=== PATIENT | female | born 1980 ===

== ENCOUNTER 2025-01-30 10:45 | Inpatient (IN) | payer OTHER ==
[~2025-01-30] VITALS: Ht 157.5 cm; Wt 68.9 kg
[2025-01-30 13:04] VITALS: BP 114/72
[2025-01-30] MEDS ORDERED: SYNTHROID100 MCG (13:04)
[2025-02-06] MEDS ORDERED: CEFTRIAXONE SODIUM 1,000 MG VIAL ONE (10:39)
[2025-02-06] MEDS ORDERED: METRONIDAZOLE/SODIUM CHLORIDE 500 MG/100 ML PIGGYBACK IV ONE (10:39)
[2025-02-06] MEDS ORDERED: LIDOCAINE HCL 1% 20 ML VIAL IJ ONE (12:15)
[2025-02-06] MEDS ORDERED: BUPIVACAINE HCL 30 ML VIAL IV ONE (12:15)
[2025-02-06] MEDS ORDERED: RINGERS SOLUTION,LACTATED 1,000 ML IV SCH (13:15)
[2025-02-06] MEDS ORDERED: MORPHINE SULFATE 4 MG/ML VIAL IV PRN (13:15)
[2025-02-06] MEDS ORDERED: ONDANSETRON HCL 2 MG/ML VIAL IV PRN (13:15)
[2025-02-06] MEDS ORDERED: OxyCODONE HCL 5 MG TABLET (ROXICODONE) PO PRN (13:15)
[2025-02-06] MEDS ORDERED: ACETAMINOPHEN 500 MG GEL..CAP PO SCH (14:00)
[2025-02-06 14:54] LABS: BASO % 0.4 % (0.1-1.2); EOS # 0.08 (0.04-0.54); EOS % 0.6 % (0.7-7.0); LYMPH # 2.50 (1.18-3.74); LYMPH % 18.5 % (19.3-53.1); MEAN PLATELET VOLUME 9.90 fl (9.4-12.4); MONO # 0.51 (0.24-0.82); MONO % 3.8 % (4.7-12.5); NEUT # 10.30 (1.56-6.13); NEUT % 76.4 % (34.0-71.1); RED CELL DISTRIBUTION WIDTH 12.9 % (11.6-14.4)
[2025-02-06] MEDS ORDERED: SIMETHICONE 125 MG CAPSULE PO ONE (15:50)
[2025-02-06] MEDS ORDERED: METOCLOPRAMIDE HCL 5 MG/ML VIAL ONE (15:50)
[2025-02-06] MEDS ORDERED: GABAPENTIN 300 MG CAPSULE PO ONE (15:51)
[2025-02-06] MEDS ORDERED: HYOSCYAMINE SULFATE 0.125 MG TAB.SUBL ONE (15:51)
[2025-02-06] MEDS ORDERED: CELECOXIB 200 MG CAPSULE PO ONE (15:51)
[2025-02-06] MEDS ORDERED: HYOSCYAMINE SULFATE 0.125 MG TAB.SUBL SL SCH (17:00)
[2025-02-06] MEDS ORDERED: SIMETHICONE 125 MG CAPSULE PO SCH (17:00)
[2025-02-06] MEDS ORDERED: GABAPENTIN 300 MG CAPSULE PO SCH (17:00)
[2025-02-06] MEDS ORDERED: METOCLOPRAMIDE HCL 5 MG/ML VIAL IV SCH (17:00)
[2025-02-06] MEDS ORDERED: CELECOXIB 200 MG CAPSULE PO SCH (17:00)
[2025-02-06 17:11] VITALS: BP 114/72; O2SAT 94
[2025-02-06] MEDS ORDERED: FAMOTIDINE/PF 20 MG/2 ML VIAL IV PUSH SCH (21:00)
[2025-02-07 00:45] VITALS: BP 98/60; O2SAT 97
[2025-02-07] MEDS ORDERED: LEVOTHYROXINE SODIUM 100 MCG TABLET PO SCH (06:00)
[2025-02-07 06:59] LABS: BASO % 0.5 % (0.1-1.2); EOS # 0.09 (0.04-0.54); EOS % 1.1 % (0.7-7.0); LYMPH # 2.46 (1.18-3.74); LYMPH % 30.2 % (19.3-53.1); MEAN PLATELET VOLUME 10.00 fl (9.4-12.4); MONO # 0.57 (0.24-0.82); MONO % 7.0 % (4.7-12.5); NEUT # 4.95 (1.56-6.13); NEUT % 60.8 % (34.0-71.1); RED CELL DISTRIBUTION WIDTH 13.0 % (11.6-14.4)
[2025-02-07 07:41] LABS: BUN CREA RATIO 4.0 (7.0-25.0); CREATININE SERUM 0.68 mg/dL (0.55-1.02); GFR 93.57; GLUCOSE FASTING 102.0 mg/dL (65-100); OSMOLALITY SERUM 282.0 MOSM/KG (275-295)
[2025-02-07] MEDS ORDERED: LACTULOSE 20 G/30 ML BLIST.PACK PO SCH (09:00)
[2025-02-07] MEDS ORDERED: LACTOBACILLUS ACIDOPHILUS 1 CAP CAP PO SCH (09:00)
[2025-02-07 09:18] VITALS: BP 119/81; O2SAT 100
[2025-02-07 16:05] VITALS: BP 100/66; O2SAT 97
[2025-02-07] MEDS ORDERED: ENOXAPARIN SODIUM 40 MG/0.4 ML SYRINGE SUBCUTANEO SCH (17:00)
[2025-02-08 00:36] VITALS: BP 102/67; O2SAT 95
[2025-02-08 06:33] LABS: BASO % 0.6 % (0.1-1.2); EOS # 0.11 (0.04-0.54); EOS % 1.7 % (0.7-7.0); LYMPH # 2.60 (1.18-3.74); LYMPH % 40.6 % (19.3-53.1); MEAN PLATELET VOLUME 10.30 fl (9.4-12.4); MONO # 0.40 (0.24-0.82); MONO % 6.2 % (4.7-12.5); NEUT # 3.24 (1.56-6.13); NEUT % 50.6 % (34.0-71.1); RED CELL DISTRIBUTION WIDTH 13.0 % (11.6-14.4)
[2025-02-08 07:26] LABS: BUN CREA RATIO 7.0 (7.0-25.0); CREATININE SERUM 0.71 mg/dL (0.55-1.02); GFR 89.02; GLUCOSE FASTING 92.0 mg/dL (65-100); OSMOLALITY SERUM 284.0 MOSM/KG (275-295)
[2025-02-08 08:00] VITALS: BP 128/86; O2SAT 95
[2025-02-08] MEDS ORDERED: ENOXAPARIN SODIUM 40 MG/0.4 ML SYRINGE SUBCUTANEO SCH (09:00)
[2025-02-08 16:14] VITALS: BP 119/79; O2SAT 97
== END 2025-02-08 20:45 | disposition home or self-care (01) | DRG 331 ==
LOC: SURH 02-06 07:00 → O/R 02-06 09:54 → SURH 02-06 09:54
PROVIDERS: Internal Medicine Geriatric Medicine; ADMIT Colon & Rectal Surgery; ATTEND Colon & Rectal Surgery
PROC: 07BB4ZZ Excision of Mesenteric Lymphatic, Percutaneous Endoscopic Approach (ICD-10-PCS; 2025-02-06)
PROC: 0DTH4ZZ Resection of Cecum, Percutaneous Endoscopic Approach (ICD-10-PCS; principal; 2025-02-06 13:30)
DX: D12.1 Benign neoplasm of appendix (principal); D37.3 Neoplasm of uncertain behavior of appendix; E03.9 Hypothyroidism, unspecified; R73.01 Impaired fasting glucose